=== PATIENT | female | born 1980 | race Caucasian/White ===

== ENCOUNTER 2018-07-19 13:14 | Emergency (ER) | payer OTHER ==
[~2018-07-19] VITALS: Ht 157.5 cm; Wt 84.1 kg
[2018-07-19 14:07] LABS: BASOPHIL % 0.5 % (0-2); PLATELET COUNT 342 x10^3mcL (130-400)
[2018-07-19 14:10] LABS: CALCIUM 8.9 mg/dL (8.5-10.1); CARBON DIOXIDE 32.7 mmol/L (21-32); CHLORIDE SERUM 103 mmol/L (98-107); GFR1 > 60 mL/min; GLUCOSE SERUM 115 mg/dL (74-106); POTASSIUM SERUM 3.8 mmol/L (3.5-5.1); RED CELL DISTRIBUTION WIDTH 14.8 % (11.5-14.5); SODIUM SERUM 143 mmol/L (136-145)
[2018-07-19 14:14] LABS: ALBUMIN 3.9 g/dL (3.4-5.0); ALKALINE PHOSPHATASE 78 U/L (46-116); ALT/SGPT 21 U/L (14-59); AST/SGOT 9 U/L (15-37); BILIRUBIN TOTAL 0.26 mg/dL (0.20-1.00); LIPASE 182 IU/L (73-393); TOTAL PROTEIN, SERUM 7.5 g/dL (6.4-8.2)
[2018-07-19 14:46] VITALS: BP 116/69
== END 2018-07-19 14:46 | disposition home or self-care (01) ==
LOC: ED 13:14
PROVIDERS: Emergency Medicine
DX: R10.11 Right upper quadrant pain (principal); E46 Unspecified protein-calorie malnutrition; F41.9 Anxiety disorder, unspecified
CPT/HCPCS: 36415

== ENCOUNTER 2019-05-06 09:36 | Emergency (ER) | payer OTHER ==
[~2019-05-06] VITALS: Ht 157.5 cm; Wt 82.1 kg
[2019-05-06 09:47] VITALS: Ht 157.5 cm; Wt 82.1 kg
[2019-05-06 11:50] VITALS: BP 119/71
== END 2019-05-06 11:50 | disposition home or self-care (01) ==
LOC: ED 09:36
DX: S39.012A Strain of muscle, fascia and tendon of lower back, initial encounter (principal); S80.02XA Contusion of left knee, initial encounter; F41.9 Anxiety disorder, unspecified; W19.XXXA Unspecified fall, initial encounter; Y93.89 Activity, other specified; Y92.89 Other specified places as the place of occurrence of the external cause; Y99.8 Other external cause status

== ENCOUNTER 2019-10-17 18:38 | Emergency (ER) | payer OTHER ==
[~2019-10-17] VITALS: Ht 157.5 cm; Wt 78.9 kg
[2019-10-17 19:03] VITALS: Ht 157.5 cm; Wt 78.9 kg
[2019-10-17 21:37] VITALS: BP 101/87
== END 2019-10-17 21:37 | disposition home or self-care (01) ==
LOC: ED 18:38
DX: G44.209 Tension-type headache, unspecified, not intractable (principal); R07.89 Other chest pain
CPT/HCPCS: J1885

== ENCOUNTER 2020-05-24 10:16 | Emergency (ER) | payer OTHER, MEDICAID ==
[~2020-05-24] VITALS: Ht 157.5 cm; Wt 68.0 kg
[2020-05-24 10:25] VITALS: Ht 157.5 cm; Wt 68.0 kg
[2020-05-24 12:06] VITALS: BP 109/71
== END 2020-05-24 12:06 | disposition home or self-care (01) ==
LOC: ED 10:16
DX: G89.18 Other acute postprocedural pain (principal); G43.909 Migraine, unspecified, not intractable, without status migrainosus; Z90.49 Acquired absence of other specified parts of digestive tract

== ENCOUNTER 2020-07-24 21:52 | Emergency (ER) | payer OTHER ==
[~2020-07-24] VITALS: Ht 157.5 cm; Wt 74.4 kg
[2020-07-24 22:17] VITALS: BP 107/66; Ht 157.5 cm; Wt 74.4 kg
== END 2020-07-25 00:48 | disposition home or self-care (01) ==
LOC: ED 21:52
DX: J02.9 Acute pharyngitis, unspecified (principal); Z20.828 Contact with and (suspected) exposure to other viral communicable diseases; G43.909 Migraine, unspecified, not intractable, without status migrainosus
CPT/HCPCS: U0003

== ENCOUNTER 2020-08-26 14:57 | Emergency (ER) | payer OTHER ==
[~2020-08-26] VITALS: Ht 157.5 cm; Wt 73.9 kg
[2020-08-26 16:17] VITALS: BP 120/76; Ht 157.5 cm; Wt 73.9 kg
[2020-08-26 18:59] LABS: PLATELET COUNT 369 x10^3mcL (179-408)
[2020-08-26 19:00] LABS: RED CELL DISTRIBUTION WIDTH 14.9 % (12.3-17.7)
[2020-08-26 19:38] LABS: CALCIUM 9.3 mg/dL (8.5-10.1); CARBON DIOXIDE 29.8 mmol/L (21-32); CHLORIDE SERUM 104 mmol/L (98-107); CREATININE SERUM 0.7 mg/dL (0.6-1.0); GFR1 > 60 mL/min; GLUCOSE SERUM 96 mg/dL (74-106); POTASSIUM SERUM 3.9 mmol/L (3.5-5.1); SODIUM SERUM 139 mmol/L (136-145)
[2020-08-26 21:08] LABS: microscopic required? NO
[2020-08-26 21:18] LABS: UA SPECIFIC GRAVITY 1.025 (1.005-1.035); urine erythrocyte NEGATIVE (NEGATIVE)
== END 2020-08-26 21:04 | disposition home or self-care (01) ==
LOC: ED 14:57
PROVIDERS: Emergency Medicine
DX: G43.909 Migraine, unspecified, not intractable, without status migrainosus (principal); R10.2 Pelvic and perineal pain; R53.1 Weakness; Z98.890 Other specified postprocedural states; Z90.49 Acquired absence of other specified parts of digestive tract

== ENCOUNTER 2020-11-02 19:15 | Emergency (ER) | payer OTHER ==
[~2020-11-02] VITALS: Ht 157.5 cm; Wt 75.7 kg
[2020-11-02 19:30] VITALS: Ht 157.5 cm; Wt 75.7 kg
[2020-11-02 19:58] LABS: microscopic required? YES; urine erythrocyte NEGATIVE (NEGATIVE)
[2020-11-02 19:59] LABS: BASOPHIL % 0.3 % (0.2-1.3); PLATELET COUNT 336 x10^3mcL (179-408)
[2020-11-02 20:15] LABS: CARBON DIOXIDE 28.5 mmol/L (21-32); CHLORIDE SERUM 102 mmol/L (98-107); CREATININE SERUM 0.8 mg/dL (0.6-1.0); GFR1 > 60 mL/min; GLUCOSE SERUM 111 mg/dL (74-106); POTASSIUM SERUM 3.7 mmol/L (3.5-5.1); SODIUM SERUM 139 mmol/L (136-145)
[2020-11-02 20:20] LABS: ALBUMIN 3.7 g/dL (3.4-5.0); ALKALINE PHOSPHATASE 69 U/L (46-116); ALT/SGPT 25 U/L (14-59); AST/SGOT 13 U/L (15-37); BILIRUBIN TOTAL 0.24 mg/dL (0.20-1.00); LIPASE 145 IU/L (73-393)
[2020-11-02 20:38] LABS: FREE T4 0.85 ng/dL (0.76-1.46)
[2020-11-02 21:51] VITALS: BP 112/77
== END 2020-11-02 21:56 | disposition home or self-care (01) ==
LOC: ED 19:15
PROVIDERS: Emergency Medicine
DX: N83.202 Unspecified ovarian cyst, left side (principal); G43.909 Migraine, unspecified, not intractable, without status migrainosus; Z90.49 Acquired absence of other specified parts of digestive tract
CPT/HCPCS: 84439